=== PATIENT | female | born 1975 | race Caucasian/White ===

== ENCOUNTER 2016-12-20 12:55 | Emergency (ER) | payer BC ==
[~2016-12-20] VITALS: Ht 167.6 cm; Wt 93.9 kg
[2016-12-20 12:57] VITALS: BP 149/90; PULSE 88; TEMP 37; O2SAT 100; Ht 167.6 cm; Wt 93.9 kg
[2016-12-20 14:36] LABS: HEMATOCRIT 32.4 % (37-47); MEAN CELL VOLUME 77.7 fL (80-100); MEAN CORPUSCULAR HEMOGLOBIN 24.5 pg (25-34); MEAN CORPUSCULAR HGB CONC 31.5 g/dl (32-36); MEAN PLATELET VOLUME 8.8 fL (7.4-10.4); PLATELET COUNT 436 K/uL (130-400); RED BLOOD COUNT 4.17 M/uL (4.2-5.4); WHITE BLOOD COUNT 8.85 K/uL (4.8-10.8)
--- NOTE | 2016-12-20 14:52 | EMERGENCY ROOM VISIT NOTE ---
History Report prepared by Isabel: Joao Palomino Under the Supervision of: Dr. Spencer Monae D.O. First contact with patient: 13:38 Chief Complaint: ED VAG BLEEDING Stated Complaint: HEAVY MENSTRUAL BLEEDING AND THROWING LARGE CLOTS History of Present Illness The patient is a 41 year old female who presents to the Emergency Room with complaints of persistent vaginal bleeding beginning 6 days ago. She notes her last period began 6 days ago and she was throwing clots which is normal for her , however she had occasional "gushing" which is not normal for her. She reports when she uses the bathroom, some clots come out. She admits to having tenderness in her pelvic area. The patient was seen by her edge glue machine tender 2 weeks ago and an US and biopsy showed a cyst on her left ovary and a polyp on her uterus. She reports having blood work 2 days ago and states her hemoglobin was 9.5. She notes her periods are normally heavy, and that recently they have not been occurring regularly. Source of History: patient Onset: 6 days ago Position: other (vagina) Quality: other (vaginal bleed) Timing: other (persistent) Note: The patient notes having tenderness in her pelvic area. Review of Systems See HPI for pertinent positives & negatives. A total of 10 systems reviewed and were otherwise negative. Past Medical & Surgical Medical Problems: (1) No Known Active Medical Problems Family History No pertinent family history stated. Social History Smoking Status: Never Smoker Current/Historical Medications No Active Prescriptions or Reported Meds Allergies Coded Allergies: No Known Allergies (Unverified , 12/20/16) Physical Exam Vital Signs Date Time Temp Pulse Resp B/P Pulse Ox O2 Delivery O2 Flow Rate FiO2 12/20/16 12:57 37.0 88 18 149/90 100 Room Air Physical Exam CONSTITUTIONAL/VITAL SIGNS: Reviewed / noted above. GENERAL: Non-toxic in appearance. INTEGUMENTARY: Warm, dry, and [place]. HEAD: Normocephalic. EYES: without scleral icterus or trauma. ENT/OROPHARYNX: clear and moist. LYMPHADENOPATHY/NECK: Is supple without lymphadenopathy or meningismus. RESPIRATORY: Lungs clear and equal. CARDIOVASCULAR: Regular rate and rhythm. GI/ABDOMEN: Soft and nontender. No organomegaly or pulsatile mass. No rebound or guarding. Normal bowel sounds. EXTREMITIES: Warm and well perfused. BACK: No CVA tenderness. NEUROLOGICAL: Intact without focal deficits. PSYCHIATRIC: normal affect. MUSCULOSKELETAL: Normally developed with good muscle tone. Medical Decision & Procedures Laboratory Results 12/20/16 14:25 Test 12/20/16 14:25 Red Blood Count 4.17 M/uL (4.2-5.4) Mean Corpuscular Volume 77.7 fL (80-100) Mean Corpuscular Hemoglobin 24.5 pg (25-34) Mean Corpuscular Hemoglobin Concent 31.5 g/dl (32-36) RDW Standard Deviation 43.5 fL (36.4-46.3) RDW Coefficient of Variation 15.4 % (11.5-14.5) Mean Platelet Volume 8.8 fL (7.4-10.4) Laboratory results as stated above per my review. ED Course 1338: Previous medical records were reviewed. The patient was evaluated in room C8. A complete history and physical examination was performed. 1500: On reevaluation, the patient is doing well. I discussed the results and findings with the patient. She verbalized agreement of the treatment plan. The patient was discharged home. Medical Decision Differential diagnosis: Etiologies such as ectopic , dysfunction uterine bleeding, bleeding dyscrasia, trauma, infection, as well as others were entertained. This is a 41-year-old female who presents to the ED with a chief complaint of vaginal bleeding. The patient reports that she has a polyp in her uterus. This was biopsied December 08. She states that she has had some irregular periods and has been having periods more frequently than normal. She states that this period started on December 14. It started out heavy like a normal period. She states that then she occasionally got a gush of blood that was not normal. She also has been passing some large clots recently. She had a hemoglobin drawn on Wednesday at [facility]. She states that was 9.5. He has talked her edge glue machine tender about this. He recommended several therapies but none have been initiated at this time. The patient did not want an IUD. He talked her about lasers and hysterectomy as well. The patient denies any symptoms such as lightheadedness, dizziness or shortness of breath. Hemoglobin today is 10.2. It was 9.52 days ago. The patient was told the results the test per she is felt to be stable for discharge. Impression Primary Impression: Abnormal uterine bleeding Scribe Attestation The scribe's documentation has been prepared under my direction and personally reviewed by me in its entirety. I confirm that the note above accurately reflects all work, treatment, procedures, and medical decision making performed by me. Departure Information Dispostion Home / Self-Care Prescriptions No Active Prescriptions or Reported Meds Referrals Briseida Sprague D.O. (PCP) Patient Instructions Bleeding Uterine, My [facility] Additional Instructions Follow-up with your edge glue machine tender. Call tomorrow for appointment. Return for any concerns.
[2016-12-20 14:58] LABS: BUN/CREATININE RATIO 10.8 (10-20); CALCIUM 8.3 mg/dl (8.5-10.1); CREATININE 0.88 mg/dl (0.60-1.20); POTASSIUM 4.1 mmol/L (3.5-5.1)
== END 2016-12-20 14:59 | disposition home or self-care (01) ==
LOC: C.EDB 12:58 → C.EDC 14:59
DX: N93.9 Abnormal uterine and vaginal bleeding, unspecified (principal)

== ENCOUNTER 2017-12-31 08:52 | Observation (INO) | payer OTHER ==
[2017-12-20 13:50] VITALS: BMI 33.0
[2017-12-20 14:35] LABS: BASO % 0.2 %; BASO ABS # 0.02 K/uL (0-0.2); EOS % 0.4 %; EOS ABS # 0.04 K/uL (0-0.5); HEMATOCRIT 44.1 % (37-47); HEMOGLOBIN 14.9 g/dL (12.0-16.0); IG# 0.02 K/uL (0.00-0.02); LYMPH % 17.7 %; LYMPH ABS # 1.77 K/uL (1.2-3.4); MEAN CELL VOLUME 89.3 fL (80-100); MEAN CORPUSCULAR HEMOGLOBIN 30.2 pg (25-34); MEAN CORPUSCULAR HGB CONC 33.8 g/dl (32-36); MEAN PLATELET VOLUME 9.7 fL (7.4-10.4); MONO % 5.1 %; MONO ABS # 0.51 K/uL (0.11-0.59); NEUT % 76.4 %; NEUT ABS # 7.66 K/uL (1.4-6.5); PLATELET COUNT 338 K/uL (130-400); RED CELL DISTRIBUTION WIDTH CV 12.3 % (11.5-14.5); RED CELL DISTRIBUTION WIDTH SD 39.9 fL (36.4-46.3); WHITE BLOOD COUNT 10.02 K/uL (4.8-10.8)
[2017-12-31] VITALS (7 sets, daily range): BP systolic 107–124; BP diastolic 62–85; PULSE 76–109; TEMP 36.8–37.4; O2SAT 93–99; Ht 167.6 cm; Wt 94.2 kg
[~2017-12-31] VITALS: Ht 167.6 cm; Wt 94.2 kg
[~2017-12-31 08:52] MED LIST: CEFAZOLIN 2000MG IV PUSH 15 ML IV SCH; LACTATED RINGER'S 1000ML 1,000 ML IV SCH; LACTATED RINGER'S 1000ML 500 ML IV SCH
[2017-12-31 09:30] LABS: BASO % 0.4 %; BASO ABS # 0.03 K/uL (0-0.2); EOS % 0.6 %; EOS ABS # 0.04 K/uL (0-0.5); HEMATOCRIT 41.2 % (37-47); IG# 0.01 K/uL (0.00-0.02); LYMPH % 23.2 %; LYMPH ABS # 1.55 K/uL (1.2-3.4); MEAN CORPUSCULAR HEMOGLOBIN 29.9 pg (25-34); MEAN PLATELET VOLUME 9.3 fL (7.4-10.4); MONO % 6.1 %; MONO ABS # 0.41 K/uL (0.11-0.59); NEUT % 69.6 %; NEUT ABS # 4.64 K/uL (1.4-6.5); PLATELET COUNT 320 K/uL (130-400); RED CELL DISTRIBUTION WIDTH CV 12.4 % (11.5-14.5); RED CELL DISTRIBUTION WIDTH SD 39.7 fL (36.4-46.3); WHITE BLOOD COUNT 6.68 K/uL (4.8-10.8)
[2017-12-31] MEDS ORDERED: ATROPINE SULFATE 0.1 MG/ML 5ML SYR IV PRN (11:30)
[2017-12-31] MEDS ORDERED: EpHEDrine SULFATE INJ 50 MG/ML AMP IV PRN (11:30)
[2017-12-31] MEDS ORDERED: ONDANSETRON INJ 2 MG/ML 2 ML VIAL IV PRN ×2 (11:30→14:45)
[2017-12-31] MEDS ORDERED: PROMETHAZINE HCL INJ 6.25 MG in SODIUM CHLORIDE 0.9% 50ML 50 ML IV PRN (11:30)
[2017-12-31] MEDS ORDERED: FENTANYL CITRATE INJ 50 MCG/1 ML 2 ML VIAL IV PRN (11:30)
[2017-12-31] MEDS ORDERED: BUPIVACAINE 0.5 % 5 MG/1 ML MPF 30ML VIAL ONE (11:35)
--- NOTE | 2017-12-31 11:35 | History & Physical Bridge Note ---
H&P Re-Evaluation Bridge Note: I have examined the patient, reviewed the History & Physical and in the interval since the performance of the History & Physical I have noted the following changes of clinical significance: No changes noted
[2017-12-31] MEDS ORDERED: MINERAL OIL LIGHT 10 ML BTL ONE (11:36)
[2017-12-31] MEDS ORDERED: METHYLENE BLUE 0.5% 10 ML VIAL ONE (11:36)
[2017-12-31] MEDS ORDERED: FENTANYL CITRATE INJ 50 MCG/1 ML 2 ML VIAL ONE (11:50)
[2017-12-31] MEDS ORDERED: ROCURONIUM BROMIDE 10 MG/ML 5 ML VIAL IV ONE (12:53)
[2017-12-31] MEDS ORDERED: LIDOCAINE HCL 2% 2 ML VIAL (20MG/ML) ONE (12:53)
[2017-12-31] MEDS ORDERED: PROPOFOL IV EMULSION 10 MG/ML 20 ML VIAL IV ONE (12:53)
[2017-12-31] MEDS ORDERED: GLYCOPYRROLATE INJ 0.2 MG/ML VIAL ONE (12:54)
[2017-12-31] MEDS ORDERED: NEOSTIGMINE METHYLSULFATE 5 MG/5 ML SYR ONE (12:54)
[2017-12-31] MEDS ORDERED: KETOROLAC TROMETHAMINE 30 MG/ML VIAL ONE (12:54)
[2017-12-31] MEDS ORDERED: DEXAMETHASONE SOD INJ 4 MG/ML VIAL ONE (12:54)
[2017-12-31] MEDS ORDERED: ONDANSETRON INJ 2 MG/ML 2 ML VIAL ONE (12:54)
[2017-12-31] MEDS ORDERED: HYDROmorphone INJ 2 MG/ML SYR/VIAL ONE (13:10)
[2017-12-31] MEDS ORDERED: MoRPHine SULFATE 2 MG/ML CARP ONE (14:06)
--- NOTE | 2017-12-31 14:40 | [facility] Post Operative Brief Note ---
Immediate Operative Summary Operative Date Dec 31, 2017. Pre-Operative Diagnosis Abnormal uterine bleeding, failed endometrial ablation Post-Operative Diagnosis Abnormal uterine bleeding, failed endometrial ablation Procedure(s) Performed Total Laparoscopic Hysterectomy, Cystoscopy Surgeon Dr. Jean Pocket Operator Surgeon(s) Dr. Mata Estimated Blood Loss 40 cc Findings Consistent with Post-Op Diagnosis Fluids (cc crystalloids) 1200 Specimens A: uterus and cervix Drains Humphrey to [place] Anesthesia Type General Complication(s) none Disposition Accompanied Pt To Recover: no Disposition: Recovery Room / PACU
[2017-12-31] MEDS ORDERED: IBUPROFEN 600 MG TAB PO PRN (14:45)
[2017-12-31] MEDS ORDERED: MAGNESIUM HYDROXIDE SUSP 30 ML UDC PO PRN (14:45)
[2017-12-31] MEDS ORDERED: MEPERIDINE HCL 50 MG/ML CARP IV PRN ×2 (14:45)
[2017-12-31] MEDS ORDERED: OXYCODONE/ACETAMINOPHEN 5-325 TAB PO PRN (14:45)
[2017-12-31] MEDS ORDERED: SENNA 8.6 MG TAB PO PRN (14:45)
[2017-12-31] MEDS ORDERED: BISACODYL 10 MG SUPP PR PRN (14:45)
--- NOTE | 2017-12-31 15:48 | Anesthesiology Progress Note ---
Anesthesia Post Op Note Date & Time Dec 31, 2017 at 15:48 Vital Signs Pain Intensity: 2 Vital Signs Past 12 Hours Date Time Temp Pulse Resp B/P (MAP) Pulse Ox O2 Delivery O2 Flow Rate FiO2 12/31/17 15:10 68 17 99/59 98 Nasal Cannula 2 12/31/17 15:00 72 19 100/64 97 Nasal Cannula 2 12/31/17 14:50 67 15 100/61 96 Nasal Cannula 2 12/31/17 14:41 36.4 75 15 108/60 97 Nasal Cannula 2 12/31/17 09:24 37.1 85 18 124/85 (98) 96 Room Air Notes Mental Status: alert / awake / arousable, participated in evaluation Pt Amnestic to Procedure: Yes Nausea / Vomiting: adequately controlled Pain: adequately controlled Airway Patency, RR, SpO2: stable & adequate BP & HR: stable & adequate Hydration State: stable & adequate Anesthetic Complications: no major complications apparent
[2017-12-31] MEDS ORDERED: KETOROLAC TROMETHAMINE 30 MG/ML VIAL IV. PRN (16:00)
--- NOTE | 2017-12-31 16:07 | OPERATIVE REPORT ---
DATE OF OPERATION: 12/31/2017 PREOPERATIVE DIAGNOSES: 1. Abnormal uterine bleeding. 2. Failed endometrial ablation. POSTOPERATIVE DIAGNOSES: Same. OPERATIVE PROCEDURE: Total laparoscopic hysterectomy and cystoscopy. SURGEON: Dr. Jerson Jean. GEOMAGNETICIAN: Dr. Mata. ANESTHESIA: General. ESTIMATED BLOOD LOSS: 40 mL. IV FLUIDS: 1200 mL crystalloids. SPECIMENS: Uterus and cervix to pathology. DRAINS: Humphrey to gravity. COMPLICATIONS: None. DISPOSITION: To recovery room. OPERATIVE FINDINGS: Upon laparoscopic examination, uterus was at midline. Bilateral ovaries and fallopian tubes were grossly normal. There were thick bladder adhesions from her previous sections. No other intra-abdominal or pelvic pathology noted. The uterus and cervix were successfully removed laparoscopically and removed from the vagina. Anesthesia was instructed to push methylene blue. Once the vaginal cuff was closed laparoscopically, a cystoscopy was performed noting no injury to the bladder wall or suture within the bladder wall. Bilateral ureteral openings expelled blue-tinged urine, indicating bilateral ureters were intact. The patient tolerated the procedure well and was sent to recovery with stable vital signs. OPERATIVE PROCEDURE IN DETAIL: The patient was taken to the operating room, where general anesthesia was administered. Once anesthesia was found to be adequate, the patient was placed in the dorsal lithotomy position and was prepped and draped in a manner appropriate for the procedure. A weighted speculum was then placed into the vagina and the anterior lip of the cervix was grasped with a single tooth tenaculum. A medium sized VCare uterine manipulator was then placed within the uterus in an anteverted fashion and was suture ligated to the cervix at 12 o'clock and 6 o'clock positions with 0 Vicryl suture. Once the VCare was then placed, the weighted speculum was removed from the vagina. A sterile Humphrey catheter was placed within the bladder and remained indwelling throughout the entire procedure. The patient was then ready for the laparoscopic portion of the procedure. Attention was directed towards the abdomen, where 0.5% Marcaine was injected below the umbilicus and an 11-mm skin incision was made below the umbilicus in a horizontal fashion. A Veress needle was then placed within the abdomen. Normal saline was injected with no fecal content aspirated. Pneumoperitoneum was then created. The Veress needle was then removed and an 11-mm trocar was then placed within the abdomen under direct laparoscopic visualization. The patient was then placed in a steep Trendelenburg position and the bowel was displaced away superiorly away from the pelvis. A second 11-mm skin incision was made on the left side of the abdomen and a second 11-mm trocar was then placed within the abdomen under direct laparoscopic visualization. A third 11-mm skin incision made on the right side of the abdomen and a third 11-mm trocar was placed within the abdomen under direct laparoscopic visualization. Once all [address], a thorough examination of the abdomen and pelvis was then performed. Attention was then directed towards the left adnexa, where the round ligament was cauterized and transected with the LigaSure. The uteroovarian ligament was then cauterized and transected, continued inferiorly through the broad ligament, cauterizing and transected as we continued. The broad ligament was and the anterior leaf of the broad ligament was cauterized and transected across the lower uterine segment. It was noted that there were thick adhesions along the vesicouterine peritoneum. The bladder was carefully dissected away from the lower uterine segment and was pushed away from the lower uterus. Attention was then directed towards the right adnexa, which likewise round ligament was cauterized and transected. The uteroovarian ligament was cauterized and transected, continued inferiorly through to the broad ligament. The broad ligament was and the anterior leaf of the broad ligament was cauterized and transected across the lower uterine segment, completing the bladder flap. Careful attention was then paid to dissect the bladder away from the lower uterus. Once we were ensured that the bladder was pushed away, the ascending uterine arteries were cauterized and transected bilaterally. We continued inferiorly through the cardinal uterosacral complex, cauterized and transected as we continued inferiorly. Once we were at the level of the VCare, the cervix and uterus were amputated from the vaginal cuff circumferentially with the LigaSure. Once the entire specimen was amputated, it was removed through the vagina. A sterile glove was then placed within the vagina to maintain a pneumoperitoneum. The entire abdomen and pelvis were then copiously irrigated with warm saline solution. The vaginal cuff was then closed with 0 Polysorb suture laparoscopically with the EndoStitch in a continuous running fashion. Excellent hemostasis was noted. The peritoneum was then reapproximated with 0 Polysorb suture with an Endostitch in a continuous running fashion as well. All fluids were then aspirated. Anesthesia was then instructed to push methylene blue. All instruments were removed from the abdomen and as much CO2 gas was allowed to percolate through open cannulas. Attention was then directed towards the perineum, where the Humphrey catheter was then removed along with a sterile glove from the vagina. The cystoscope was then introduced into the bladder and a thorough examination of the bladder was performed, noting no injury to the bladder wall. Bilateral ureteral openings expelled blue-tinged urine, indicating bilateral ureters were intact. At this point, the cystoscope was removed and a second sterile Humphrey catheter was then placed within the bladder. At this point, the procedure was found to be complete. The trocars were removed from the abdomen. The fascia of all 3 incisions were reapproximated with 0 Vicryl suture in a [id number] interrupted fashion. Skin was then closed with 4-0 Monocryl in a subcuticular fashion. Excellent hemostasis was noted in all 3 incisions. All sponge, instrument and needle counts were found to be correct x2. The patient tolerated the procedure well and was sent to recovery with stable vital signs. I attest to the content of the Intraoperative Record and any orders documented therein. Any exception s are noted below.
[2017-12-31] MEDS: LACTATED RINGER'S 1000ML 1,000 ML IV SCH (18:03)
[2017-12-31 19:13] LABS: HEMATOCRIT 36.6 % (37-47); HEMOGLOBIN 12.4 g/dL (12.0-16.0)
[2018-01-01] VITALS: BP 100/63; PULSE 75; TEMP 37.1
[2018-01-01] MEDS: LACTATED RINGER'S 1000ML 1,000 ML IV SCH (01:20)
[2018-01-01 04:10] VITALS: BP 104/67; PULSE 66; TEMP 37.2; O2SAT 96
[2018-01-01 07:20] VITALS: BP 109/71; PULSE 73; TEMP 36.8; O2SAT 97
[2018-01-01 08:09] LABS: BASO % 0.1 %; BASO ABS # 0.01 K/uL (0-0.2); HEMATOCRIT 34.1 % (37-47); HEMOGLOBIN 11.5 g/dL (12.0-16.0); IG# 0.03 K/uL (0.00-0.02); LYMPH % 13.7 %; LYMPH ABS # 1.56 K/uL (1.2-3.4); MEAN CELL VOLUME 88.6 fL (80-100); MEAN CORPUSCULAR HEMOGLOBIN 29.9 pg (25-34); MEAN CORPUSCULAR HGB CONC 33.7 g/dl (32-36); MEAN PLATELET VOLUME 9.1 fL (7.4-10.4); MONO % 9.1 %; MONO ABS # 1.04 K/uL (0.11-0.59); NEUT % 76.8 %; NEUT ABS # 8.78 K/uL (1.4-6.5); PLATELET COUNT 266 K/uL (130-400); RED CELL DISTRIBUTION WIDTH CV 12.5 % (11.5-14.5); RED CELL DISTRIBUTION WIDTH SD 40.1 fL (36.4-46.3); WHITE BLOOD COUNT 11.42 K/uL (4.8-10.8)
--- NOTE | 2018-01-01 08:45 | Surgery Progress Note ---
Surgery Progress Note Date of Service Jan 01, 2018. Subjective Post OP Day: 1 + feeling well, + ambulating, + flatus, + pain controlled, No complaints, No chest pain, No SOB, No bowel movement, No using NURSE CLINICAL, No nausea, No vomiting, No diet (Tolerating PO food and Meds) Objective Vital Signs: Date Time Temp Pulse Resp B/P (MAP) Pulse Ox O2 Delivery O2 Flow Rate FiO2 01/01/18 07:20 97 Room Air 01/01/18 07:20 36.8 73 18 109/71 (84) 97 Room Air 01/01/18 04:10 37.2 66 18 104/67 (79) 96 Room Air 01/01/18 00:00 Room Air 01/01/18 00:00 37.1 75 18 100/63 (75) Room Air 12/31/17 20:15 37.1 96 18 107/66 (80) Room Air 12/31/17 18:25 36.8 92 18 116/74 (88) 12/31/17 18:20 Room Air 12/31/17 18:00 86 18 112/70 (84) 95 Room Air 12/31/17 17:00 93 18 115/66 (82) 93 Room Air 12/31/17 16:30 109 18 114/74 (87) 98 Room Air 12/31/17 16:00 37.4 76 18 108/62 (77) 99 Room Air 12/31/17 16:00 99 Room Air 12/31/17 16:00 99 Room Air 12/31/17 15:45 79 15 103/68 97 Nasal Cannula 2 12/31/17 15:30 69 22 103/64 98 Nasal Cannula 2 12/31/17 15:20 36.6 67 18 102/65 98 Nasal Cannula 2 12/31/17 15:10 68 17 99/59 98 Nasal Cannula 2 12/31/17 15:00 72 19 100/64 97 Nasal Cannula 2 12/31/17 14:50 67 15 100/61 96 Nasal Cannula 2 12/31/17 14:41 36.4 75 15 108/60 97 Nasal Cannula 2 12/31/17 09:24 37.1 85 18 124/85 (98) 96 Room Air General Appearance: WD/WN, no apparent distress Head: normocephalic, atraumatic Neck: supple, no adenopathy, thyroid normal, no JVD, no carotid bruits, trachea midline Respiratory/Chest: chest non-tender, lungs clear, normal breath sounds, no respiratory distress, no accessory muscle use Cardiovascular: regular rate, rhythm, no edema, no gallop, no JVD, no murmur Abdomen: normal bowel sounds, non tender, non distended, soft, no organomegaly , no pulsatile mass Incision(s): clean, dry, intact, no erythema, no drainage Extremities: normal range of motion, non-tender, normal inspection, no pedal edema, no calf tenderness, normal capillary refill, pelvis stable Laboratory Results: Results Past 24 Hours Test 12/31/17 09:11 12/31/17 19:02 01/01/18 07:54 Range/Units White Blood Count 6.68 11.42 4.8-10.8 K/uL Red Blood Count 4.68 3.85 4.2-5.4 M/uL Hemoglobin 14.0 12.4 11.5 12.0-16.0 g/dL Hematocrit 41.2 36.6 34.1 37-47 % Mean Corpuscular Volume 88.0 88.6 80-100 fL Mean Corpuscular Hemoglobin 29.9 29.9 25-34 pg Mean Corpuscular Hemoglobin Concent 34.0 33.7 32-36 g/dl Platelet Count 320 266 130-400 K/uL Mean Platelet Volume 9.3 9.1 7.4-10.4 fL Neutrophils (%) (Auto) 69.6 76.8 % Lymphocytes (%) (Auto) 23.2 13.7 % Monocytes (%) (Auto) 6.1 9.1 % Eosinophils (%) (Auto) 0.6 0.0 % Basophils (%) (Auto) 0.4 0.1 % Neutrophils # (Auto) 4.64 8.78 1.4-6.5 K/uL Lymphocytes # (Auto) 1.55 1.56 1.2-3.4 K/uL Monocytes # (Auto) 0.41 1.04 0.11-0.59 K/uL Eosinophils # (Auto) 0.04 0.00 0-0.5 K/uL Basophils # (Auto) 0.03 0.01 0-0.2 K/uL RDW Standard Deviation 39.7 40.1 36.4-46.3 fL RDW Coefficient of Variation 12.4 12.5 11.5-14.5 % Immature Granulocyte % (Auto) 0.1 0.3 % Immature Granulocyte # (Auto) 0.01 0.03 0.00-0.02 K/uL Human Chorionic Gonadotropin, Qual NEG NEG Assessment & Plan A/P Total Lap Hysterectomy Pt doing well No complaints disch home with instructions
[2018-01-01] MEDS ORDERED: MTR600X PO (08:46)
[2018-01-01] MEDS ORDERED: OXYC-57 PO (08:46)
--- NOTE | 2018-01-01 08:50 | Discharge Instructions ---
Discharge Instructions Date of Service Jan 01, 2018. Admission Reason for Admission: Abnormal Uterine Bleeding, Failed Endometrial Abla Discharge Discharge Diagnosis / Problem: postop Discharge Goals Goal(s): Routine recovery after surgery Activity Recommendations Activity Limitations: as noted below POST OPERATIVE: BOWEL FUNCTION/MEDICATIONS: 1. Constipation pain and discomfort are the most common complaints 5-7 days after surgery. Points 2-6 address the things that can help. 2. Chewing gum can help stimulate the gut and help improve digestion and motility. 3. Milk of Magnesia 1-2 times per day until return of bowel function. 4. Colace is a stool softener that helps. Taking this 2-3 times per day until bowel function returns to normal is highly recommended. 5. Dulcolax is a laxative that may be used if several days have passed without a bowel movement. Alternatively Miralax may be used daily instead. 6. Drink plenty of fluids as this will also reduce constipation. 7. Narcotic pain medications will be prescribed by your physician. They are safe to use and we encourage you to use them. If you are not allergic, ibuprofen will also be prescribed. Many patients will be able to transition off of the narcotic medications to ibuprofen by postoperative day 3. ACTIVITY RECOMMENDATIONS: 1. Get plenty of rest and listen to your body. If you are tired, take a nap. 2. You may shower, but do not take a tub bath until you see your doctor at the 2 week post operative visit. 3. Absolutely NO intercourse and nothing in the vagina until you are examined by your doctor at the 6 week visit. At that visit it will be determined when such activities can be resumed. This can range from 6-12 weeks after your surgery depending on healing time. 4. The main physical activity in the first week should be walking. By the second week you can slowly increase activity. There are no limits on walking up and down stairs. 5. Do not lift more than 5-10 lbs for 4 weeks. Remember the "one-handed rule", i.e. if you can lift something with only one hand it's likely okay. 6. Minimize insurance marketing rep like vacuuming and exercising for 4 weeks. "Overdoing it" can lead to incisions not healing, pain and vaginal bleeding , so again, listen to your body. 7. Driving can be resumed when you feel able. Do not drive within 24 hours of taking a narcotic medication. EXPECTATIONS: 1. Vaginal spotting, bleeding and discharge are common after surgery. There may even be an odor to the discharge which is often related to sutures used in the vagina. If you experience heavy vaginal bleeding, call the office number day or night [phone]. 2. Bladder discomfort is common after surgery from the catheter. This usually resolves in 1-2 weeks. 3. By the end of the 3rd or 4th week you should be feeling much better. It may take up to 6 weeks for your energy levels to return to normal. 4. Narcotic medications have side effects such as: dizziness, headache, nausea and/or vomiting. If you suspect your pain medication is causing problems, call our office and we may be able to prescribe an alternate medication. 5. The skin incisions are often covered with a liquid bandage. This will gradually peel off over time. CALL THE OFFICE IF YOU HAVE ANY OF THE FOLLOWIN. Temperature of 101 degrees or higher. 2. Severe abdominal or pelvic pain not relieved by pain medication. 3. Persistent nausea or vomiting. 4. Increased pain with urination or difficulty urinating. 5. Bright red bleeding that soaks more than 1 pad per hour. CONTACT PHONE NUMBERS: Main Office: [phone]. FOLLOW-UP: Post-Operative Appointments: * Individual instructions will have been given about the timing of your first examination, but this is usually at the end of the second week home. * You will need to call the office at [phone]. soon after discharge to make the appointment for your post-op check-up if it has not already been scheduled. * Additional information regarding activity, sexual intercourse and when to return to work will be given at this appointment. WE WISH YOU A SPEEDY RECOVERY! . Current Hospital Diet Patient's current hospital diet: Regular Diet Discharge Diet Recommended Diet: Regular Diet Procedures Procedures Performed: Total Laparoscopic Hysterectomy, Cystoscopy Pending Studies Studies pending at discharge: no Medical Emergencies . Who to Call and When: Medical Emergencies: If at any time you feel your situation is an emergency, please call 911 immediately. . Non-Emergent Contact Non-Emergency issues call your: Specialist . . "Provider Documentation" section prepared by Bernardo Mata. . VTE Core Measure Inpt VTE Proph given/why not?: Treatment not indicated
[2018-01-01 08:51] LABS: CALCIUM 8.3 mg/dl (8.5-10.1); CREATININE 0.9 mg/dl (0.60-1.20); POTASSIUM 3.8 mmol/L (3.5-5.1)
[2018-01-01 10:10] VITALS: BP 109/71; PULSE 73; TEMP 36.8; O2SAT 97
== END 2018-01-01 10:15 | disposition home or self-care (01) ==
LOC: C.ACU 08:52 → C.MS4N 14:39 → ENRESERV 15:23 → C.OBG 18:27
PROVIDERS: ADMIT Obstetrics & Gynecology; ATTEND Obstetrics & Gynecology
DX: N93.9 Abnormal uterine and vaginal bleeding, unspecified (principal); E66.9 Obesity, unspecified; Z98.51 Tubal ligation status; Z98.890 Other specified postprocedural states; Z98.818 Other dental procedure status; Z68.35 Body mass index [BMI] 35.0-35.9, adult; Z83.3 Family history of diabetes mellitus; Z82.5 Family history of asthma and other chronic lower respiratory diseases; Z80.9 Family history of malignant neoplasm, unspecified